=== PATIENT | male | born 1940 | race Caucasian/White ===

== ENCOUNTER → 2017-02-19 | Outpatient (CLI) | payer MEDICARE, OTHER ==
[~2017-02-19] MED LIST: ASCO10004 PO; ASPI-496 PO; CARB1TAB47 PO; CHONDROITIN PEG; CURCUMIN PO; ESZO3TAB28 PO; MULT-516 PO; PRAS50TA PO; RASA1TAB2 PO; RIVA20TA PO; UBID400C6 PO; VITAMIN E PO
== END | disposition home or self-care (01) ==
LOC: CFH 14:40
PROVIDERS: ATTEND Internal Medicine
DX: M48.54XA Collapsed vertebra, not elsewhere classified, thoracic region, initial encounter for fracture (principal); J98.4 Other disorders of lung
CPT/HCPCS: 71250

== ENCOUNTER → 2017-11-18 | Outpatient (CLI) | payer MEDICARE, OTHER | END | disposition home or self-care (01) | LOC: CFH 08:41 | PROVIDERS: ATTEND Internal Medicine Cardiovascular Disease | DX: I08.0 Rheumatic disorders of both mitral and aortic valves (principal); R06.02 Shortness of breath | CPT/HCPCS: 93306 ==

== ENCOUNTER 2018-02-24 08:56 | Emergency (ER) | payer MEDICARE, OTHER ==
[~2018-02-24] VITALS: Ht 182.9 cm; Wt 78.1 kg
[2018-02-24] MEDS ORDERED: CARBIDOPA/LEVODOPA 25 MG/100 MG TABLET PO ONE (09:33)
[2018-02-24] MEDS ORDERED: LORazepam 1MG TABLET ONE (09:59)
[2018-02-24] MEDS ORDERED: DIPHENHYDRAMINE 50 MG/ML, 1ML IM ONE (10:00)
[2018-02-24] MEDS ORDERED: LORazepam 1MG TABLET PO ONE (10:00)
[2018-02-24 10:35] LABS: BASOPHILS # (AUTO) 0.01 x10^3/uL (0-0.1); BASOPHILS % (AUTO) 0 % (0-1); EOSINOPHILS # (AUTO) 0.08 x10^3/uL (0-0.4); EOSINOPHILS % (AUTO) 1 % (1-7); LYMPHOCYTES # (AUTO) 1.22 x10^3/uL (1-3.4); LYMPHOCYTES % (AUTO) 18 % (22-44); MD NO; MEAN CORPUSCULAR HEMOGLOBIN 32.1 pg (27.5-34.5); MEAN CORPUSCULAR HGB CONC 34.3 g/dL (33.2-36.2); MEAN CORPUSCULAR VOLUME 93.8 fL (81-97); MEAN PLATELET VOLUME 8.1 fL (7.4-10.4); MONOCYTES # (AUTO) 0.51 x10^3/uL (0.2-0.8); MONOCYTES % (AUTO) 8 % (2-9); NEUTROPHILS # (AUTO) 4.81 x10^3/uL (1.8-6.8); NEUTROPHILS % (AUTO) 73 % (42-75); PLATELET COUNT 211 x10^3/uL (130-400); RED BLOOD COUNT 4.78 x10^6/uL (4.38-5.82); RED CELL DISTRIBUTION WIDTH 13.5 % (9.4-14.8)
[2018-02-24 10:45] LABS: ALANINE AMINOTRANSFERASE 8 U/L (12-78); ALBUMIN 3.9 g/dL (3.4-5.0); ANION GAP 9 mmol/L (5-15); CALCIUM 9.2 mg/dL (8.5-10.1); CHLORIDE 106 mmol/L (98-107); CREATININE 1.08 mg/dL (0.7-1.3)
[2018-02-24 10:47] LABS: ALKALINE PHOSPHATASE 70 U/L (45-117); TOTAL PROTEIN 6.8 g/dL (6.4-8.2)
[2018-02-24 11:08] VITALS: BP 147/85
== END 2018-02-24 12:14 | disposition home or self-care (01) ==
LOC: ED 11:19
DX: F41.1 Generalized anxiety disorder (principal); G20 Parkinson's disease; I48.91 Unspecified atrial fibrillation
CPT/HCPCS: 36415; 80053; 85025; 93005; 99285

== ENCOUNTER → 2018-03-03 | Outpatient (CLI) | payer MEDICARE, OTHER ==
[~2018-03-03] MED LIST changes: +REGADENOSON 0.4 MG/5 ML SYRINGE ONE
== END | disposition home or self-care (01) ==
LOC: CFH 08:19
PROVIDERS: ATTEND Internal Medicine Cardiovascular Disease
DX: R06.02 Shortness of breath (principal); R07.9 Chest pain, unspecified
CPT/HCPCS: 78452; 93017; A9502; J2785

== ENCOUNTER 2020-07-16 16:13 | Emergency (ER) | payer MEDICARE, OTHER ==
[~2020-07-16] VITALS: Ht 182.9 cm; Wt 74.0 kg
[~2020-07-16 16:13] MED LIST changes: +ASCO100018 PO; -ASCO10004 PO; -REGADENOSON 0.4 MG/5 ML SYRINGE ONE
--- NOTE | 2020-07-16 16:40 | NUR ---
ERMD AT BEDSIDE FOR EVAL.
--- NOTE | 2020-07-16 16:59 | NUR ---
XRAY AT BEDSIDE.
[2020-07-16] MEDS ORDERED: LORazepam 0.5MG TABLET PO ONE (17:00)
[2020-07-16] MEDS ORDERED: LORazepam 0.5MG TABLET ONE (17:02)
[2020-07-16] MEDS ORDERED: ENTA200T22 PO (17:12)
[2020-07-16] MEDS ORDERED: CARB1TAB22 PO (17:12)
[2020-07-16] MEDS ORDERED: ALPR0.5T93 PO (17:12)
[2020-07-16] MEDS ORDERED: ASPI325T17 PO (17:12)
[2020-07-16 17:25] LABS: BASOPHILS % (AUTO) 0 % (0-1); EOSINOPHILS % (AUTO) 0 % (1-7); LYMPHOCYTES % (AUTO) 18 % (22-44); MEAN CORPUSCULAR HEMOGLOBIN 31.6 pg (27.5-34.5); MEAN CORPUSCULAR HGB CONC 34.4 g/dL (33.2-36.2); MEAN PLATELET VOLUME 7.8 fL (7.4-10.4); MONOCYTES % (AUTO) 7 % (2-9); NEUTROPHILS % (AUTO) 75 % (42-75); PLATELET COUNT 175 x10^3/uL (130-400); RED CELL DISTRIBUTION WIDTH 13.6 % (9.4-14.8)
[2020-07-16 17:27] LABS: MD NO
[2020-07-16 17:35] LABS: ALBUMIN 3.8 g/dL (3.4-5.0); ANION GAP 6 mmol/L (5-15); CALCIUM 8.6 mg/dL (8.5-10.1); CHLORIDE 113 mmol/L (98-107)
[2020-07-16 17:40] LABS: ALKALINE PHOSPHATASE 68 U/L (45-117); CREATININE 1.01 mg/dL (0.7-1.3); TOTAL PROTEIN 6.1 g/dL (6.4-8.2); TROPONIN I < 0.015 ng/mL (0.000-0.045)
[2020-07-16 17:41] LABS: ALANINE AMINOTRANSFERASE < 6 U/L (12-78)
--- NOTE | 2020-07-16 18:19 | NUR ---
TASK RN: PT TO IMAGING VIA [facility] AT THIS TIME.
--- NOTE | 2020-07-16 19:54 | NUR ---
Buck martin in [facility] - 07/16/20 at 1955 by RADHA TRANSFER TO HOSPITAL BED.
--- NOTE | 2020-07-16 19:54 | NUR ---
TRANSFER TO HOSPITAL BED.
--- NOTE | 2020-07-16 19:55 | NUR ---
REQUESTED MEDS FROM PHARMACY.
[2020-07-16] MEDS ORDERED: OMNIPAQUE 350 MG/ML, 100ML BOTTLE ONE (20:00)
[2020-07-16] MEDS ORDERED: CARBIDOPA/LEVODOPA 25 MG/100 MG TABLET PO ONE (20:00)
[2020-07-16] MEDS ORDERED: ENTACAPONE 200 MG TABLET PO ONE (20:00)
[2020-07-16 20:02] VITALS: BP 159/97
--- NOTE | 2020-07-16 20:02 | NUR ---
PT MEDICATED PER MAR.
--- NOTE | 2020-07-16 20:15 | NUR ---
DR. DOMINGUEZ AT BEDSIDE TO DISCUSS POC.
== END 2020-07-16 20:38 | disposition home or self-care (01) ==
LOC: ED 17:49
DX: R06.00 Dyspnea, unspecified (principal); R06.02 Shortness of breath; R07.89 Other chest pain; G20 Parkinson's disease; I48.91 Unspecified atrial fibrillation; F41.9 Anxiety disorder, unspecified
CPT/HCPCS: 36415; 71045; 71275; 80053; 83880; 84484; 85025; 93005; 99285; Q9967

== ENCOUNTER 2020-07-23 13:20 | Emergency (ER) | payer MEDICARE, OTHER ==
[~2020-07-23] VITALS: Ht 182.9 cm; Wt 77.0 kg
[~2020-07-23 13:20] MED LIST changes: +ALPR0.5T93 PO; +ASPI325T17 PO; +CARB1TAB22 PO; +ENTA200T22 PO
[2020-07-23 13:27] VITALS: BP 167/82
[2020-07-23 14:06] LABS: BASOPHILS % (AUTO) 0 % (0-1); EOSINOPHILS % (AUTO) 0 % (1-7); LYMPHOCYTES % (AUTO) 8 % (22-44); MEAN CORPUSCULAR HEMOGLOBIN 31.6 pg (27.5-34.5); MEAN CORPUSCULAR HGB CONC 33.3 g/dL (33.2-36.2); MEAN PLATELET VOLUME 8.1 fL (7.4-10.4); MONOCYTES % (AUTO) 7 % (2-9); NEUTROPHILS % (AUTO) 85 % (42-75); PLATELET COUNT 205 x10^3/uL (130-400); RED BLOOD COUNT 4.95 x10^6/uL (4.38-5.82); RED CELL DISTRIBUTION WIDTH 13.5 % (9.4-14.8)
[2020-07-23 14:13] LABS: ALBUMIN 4.5 g/dL (3.4-5.0); ANION GAP 8 mmol/L (5-15); CALCIUM 9.5 mg/dL (8.5-10.1); CHLORIDE 111 mmol/L (98-107); CREATININE 1.08 mg/dL (0.7-1.3)
[2020-07-23 14:17] LABS: TROPONIN I < 0.015 ng/mL (0.000-0.045)
--- NOTE | 2020-07-23 14:25 | NUR ---
BREAK RN: PT VISITING WITH FAMILY AT BEDSIDE. VS STABLE. NO ACUTE DISTRESS NOTED. CALL LIGHT IN PLACE. WILL CONTINUE TO MONITOR.
[2020-07-23 14:32] LABS: MD SCAN
--- NOTE | 2020-07-23 15:01 | NUR ---
BREAK RN: REPORT GIVEN TO JORGE CONNELL
[2020-07-23] MEDS ORDERED: FUROSEMIDE 20 MG TABLET PO ONE (15:30)
[2020-07-23] MEDS ORDERED: FUROSEMIDE 20 MG TABLET ONE (15:36)
== END 2020-07-23 15:43 | disposition home or self-care (01) ==
LOC: ED 15:22
DX: I50.9 Heart failure, unspecified (principal); R06.00 Dyspnea, unspecified; R00.2 Palpitations; R07.89 Other chest pain; R06.02 Shortness of breath; I48.91 Unspecified atrial fibrillation
CPT/HCPCS: 36415; 71045; 80048; 82040; 83880; 84484; 85025; 93005; 99285

== ENCOUNTER 2020-07-25 18:53 | Observation (INO) | payer MEDICARE, OTHER ==
[~2020-07-25] VITALS: Ht 182.9 cm; Wt 70.5 kg
--- NOTE | 2020-07-25 19:03 | NUR ---
pt bibm, noted to have significant tremor to rue, hyperventilating, complaining of shortness of breath. pt placed on site monitor, coached on pursed lip breathing, and encouraged to calm himself. pt denies pain, reports being seen in ed last night for same. ekg done on arrival.
[2020-07-25] MEDS ORDERED: LORazepam 2 MG/ML, 1ML ONE (19:46)
[2020-07-25] MEDS ORDERED: ASPIRIN 81 MG TABLET CHEW ONE (19:51)
[2020-07-25 20:00] LABS: BASOPHILS % (AUTO) 0 % (0-1); EOSINOPHILS % (AUTO) 0 % (1-7); LYMPHOCYTES % (AUTO) 5 % (22-44); MEAN CORPUSCULAR HEMOGLOBIN 31.8 pg (27.5-34.5); MEAN CORPUSCULAR HGB CONC 34.3 g/dL (33.2-36.2); MONOCYTES % (AUTO) 7 % (2-9); NEUTROPHILS % (AUTO) 87 % (42-75); PLATELET COUNT 200 x10^3/uL (130-400); RED BLOOD COUNT 4.88 x10^6/uL (4.38-5.82); RED CELL DISTRIBUTION WIDTH 13.5 % (9.4-14.8)
[2020-07-25] MEDS ORDERED: ASPIRIN 81 MG TABLET CHEW PO ONE (20:00)
[2020-07-25] MEDS ORDERED: LORazepam 2 MG/ML, 1ML IVPush ONE (20:00)
[2020-07-25 20:01] LABS: MD NO
[2020-07-25 20:12] LABS: ALANINE AMINOTRANSFERASE 12 U/L (12-78); ALBUMIN 4.2 g/dL (3.4-5.0); ANION GAP 11 mmol/L (5-15); CALCIUM 9.1 mg/dL (8.5-10.1); CHLORIDE 106 mmol/L (98-107); CREATININE 1.34 mg/dL (0.7-1.3)
[2020-07-25 20:17] LABS: ALKALINE PHOSPHATASE 83 U/L (45-117); BILIRUBIN,TOTAL 1.5 mg/dL (0.2-1.0); TROPONIN I < 0.015 ng/mL (0.000-0.045)
--- NOTE | 2020-07-25 20:34 | NUR ---
pt in bed with no signs or symptoms of acute distress noted, respirations even and unlabored. tremor noted to be more calm, pt is no longer hyperventilating, pt reports feeling much better. 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
[2020-07-25 22:37] VITALS: BP 120/75
[2020-07-25 23:21] LABS: MICROSCOPIC NOT IND
[2020-07-25] MEDS ORDERED: POLYETHYLENE GLYCOL 17 GM PACKET PO PRN (23:30)
[2020-07-25] MEDS ORDERED: BISACODYL 10 MG SUPP PR PRN (23:30)
[2020-07-25] MEDS ORDERED: DOCUSATE 100 MG CAPSULE PO PRN (23:30)
[2020-07-25] MEDS ORDERED: ONDANSETRON 2MG/ML, 2ML IVPush PRN (23:30)
[2020-07-25] MEDS ORDERED: ENALAPRILAT 1.25 MG/ML, 2ML IVPush PRN (23:30)
[2020-07-25] MEDS ORDERED: LORazepam 2 MG/ML, 1ML IVPush PRN (23:30)
[2020-07-25] MEDS: CARBIDOPA/LEVODOPA 25 MG/100 MG TABLET PO SCH (23:52)
[2020-07-25] MEDS: LACTATED RINGERS 1,000 ML IV SCH (23:52)
[2020-07-25] MEDS: HEPARIN 5,000 UNITS/ML, 1ML SQ SCH (23:52)
[2020-07-26 01:35] LABS: TROPONIN I < 0.015 ng/mL (0.000-0.045)
[2020-07-26 02:07] VITALS: BP 124/68
[2020-07-26 02:11] LABS: BASOPHILS % (AUTO) 0 % (0-1); EOSINOPHILS % (AUTO) 0 % (1-7); LYMPHOCYTES % (AUTO) 8 % (22-44); MEAN CORPUSCULAR HEMOGLOBIN 31.7 pg (27.5-34.5); MEAN CORPUSCULAR HGB CONC 34.1 g/dL (33.2-36.2); MEAN PLATELET VOLUME 8.1 fL (7.4-10.4); MONOCYTES % (AUTO) 7 % (2-9); NEUTROPHILS % (AUTO) 84 % (42-75); PLATELET COUNT 189 x10^3/uL (130-400); RED BLOOD COUNT 4.53 x10^6/uL (4.38-5.82); RED CELL DISTRIBUTION WIDTH 13.6 % (9.4-14.8)
[2020-07-26 02:15] LABS: MD NO
[2020-07-26 02:19] LABS: ALANINE AMINOTRANSFERASE 8 U/L (12-78); ALBUMIN 3.6 g/dL (3.4-5.0); ANION GAP 9 mmol/L (5-15); CALCIUM 8.4 mg/dL (8.5-10.1); CHLORIDE 108 mmol/L (98-107); CREATININE 1.13 mg/dL (0.7-1.3)
[2020-07-26 02:22] LABS: ALKALINE PHOSPHATASE 71 U/L (45-117); BILIRUBIN,TOTAL 1.4 mg/dL (0.2-1.0); TOTAL PROTEIN 6.3 g/dL (6.4-8.2)
[2020-07-26] MEDS: CARBIDOPA/LEVODOPA 25 MG/100 MG TABLET PO SCH ×4 (03:02→11:22)
[2020-07-26] MEDS: ENTACAPONE 200 MG TABLET PO SCH ×2 (05:47→09:56)
[2020-07-26] MEDS ORDERED: ASPIRIN 81 MG TABLET EC PO SCH (06:00)
[2020-07-26 07:58] VITALS: BP 115/70
[2020-07-26] MEDS: HEPARIN 5,000 UNITS/ML, 1ML SQ SCH (08:12)
[2020-07-26] MEDS ORDERED: MULTIVITAMIN 1 TABLET PO SCH (09:00)
[2020-07-26] MEDS ORDERED: ASCORBIC ACID 500 MG TABLET PO SCH (09:00)
[2020-07-26] MEDS: LACTATED RINGERS 1,000 ML IV SCH (09:55)
[2020-07-26 13:10] VITALS: BP 111/70
== END 2020-07-26 13:30 | disposition home or self-care (01) ==
LOC: ED 19:23 → INTOOBSV 21:29 → EDIP 21:29 → 5SO 22:20 → DCLOUNGE 07-26 13:24
PROVIDERS: ADMIT Family Medicine; ATTEND Family Medicine
DX: F41.0 Panic disorder [episodic paroxysmal anxiety] (principal); N17.9 Acute kidney failure, unspecified; I48.91 Unspecified atrial fibrillation; R06.02 Shortness of breath; R94.31 Abnormal electrocardiogram [ECG] [EKG]; I50.9 Heart failure, unspecified; R73.9 Hyperglycemia, unspecified; R07.89 Other chest pain; R06.00 Dyspnea, unspecified; E80.7 Disorder of bilirubin metabolism, unspecified; G20 Parkinson's disease; Z79.899 Other long term (current) drug therapy
CPT/HCPCS: 36415; 71045; 80053; 81003; 83036; 84443; 84484; 85025; 93005; 96361; 96372; 96374; 99285; G0378; J1644; J2060; J7120

== ENCOUNTER → 2020-11-03 | Outpatient (CLI) | payer MEDICARE, OTHER | END | disposition home or self-care (01) | LOC: CVU 08:06 | PROVIDERS: ATTEND Internal Medicine Cardiovascular Disease | DX: I34.0 Nonrheumatic mitral (valve) insufficiency (principal); R06.02 Shortness of breath; I48.91 Unspecified atrial fibrillation; Z95.0 Presence of cardiac pacemaker | CPT/HCPCS: 93306; 93356 ==

== ENCOUNTER → 2020-11-11 | Outpatient (CLI) | payer MEDICARE, OTHER ==
[~2020-11-11] MED LIST changes: +REGADENOSON 0.4 MG/5 ML SYRINGE ONE
== END | disposition home or self-care (01) ==
LOC: CFH 07:08
PROVIDERS: ATTEND Internal Medicine Cardiovascular Disease
DX: I34.0 Nonrheumatic mitral (valve) insufficiency (principal); R06.02 Shortness of breath
CPT/HCPCS: 78452; 93017; A9502; J2785

== ENCOUNTER 2021-01-08 18:31 | Emergency (ER) | payer MEDICARE, OTHER ==
[~2021-01-08] VITALS: Ht 182.9 cm; Wt 66.0 kg
[~2021-01-08 18:31] MED LIST changes: -REGADENOSON 0.4 MG/5 ML SYRINGE ONE
--- NOTE | 2021-01-08 19:12 | NUR ---
PT TO ROOM FROM LOBBY
--- NOTE | 2021-01-08 20:01 | NUR ---
PT UPRIGHT ON GURNEY AWAKE, CALM & COMFORTABLE AT REST, RESPONDS APPROP TO STAFF, NAD, COMFORT MEASURES PROVIDED, CALL LIGHT WITHIN REACH.
[2021-01-08 20:07] LABS: BASOPHILS % (AUTO) 0 % (0-1); EOSINOPHILS % (AUTO) 1 % (1-7); LYMPHOCYTES % (AUTO) 13 % (22-44); MEAN CORPUSCULAR HEMOGLOBIN 31.7 pg (27.5-34.5); MEAN CORPUSCULAR HGB CONC 33.8 g/dL (33.2-36.2); MEAN PLATELET VOLUME 7.6 fL (7.4-10.4); MONOCYTES % (AUTO) 6 % (2-9); NEUTROPHILS % (AUTO) 80 % (42-75); PLATELET COUNT 203 x10^3/uL (130-400); RED BLOOD COUNT 4.08 x10^6/uL (4.38-5.82); RED CELL DISTRIBUTION WIDTH 14.1 % (9.4-14.8)
[2021-01-08 20:15] LABS: ALBUMIN 3.5 g/dL (3.4-5.0); ANION GAP 2 mmol/L (5-15); CALCIUM 8.2 mg/dL (8.5-10.1); CHLORIDE 107 mmol/L (98-107); CREATININE 0.91 mg/dL (0.7-1.3)
[2021-01-08 20:19] LABS: TROPONIN I < 0.015 ng/mL (0.000-0.045)
[2021-01-08 20:46] VITALS: BP 111/72
--- NOTE | 2021-01-08 20:57 | NUR ---
Patient given discharge instructions and Rx, they have confirmed that they understand the instructions. Patient ambulatory with steady gait. NAD, all questions answered appropriately, denies additional needs at this time. No personal belongings left in room after discharge.
== END 2021-01-08 21:24 | disposition home or self-care (01) ==
LOC: ED 19:30
DX: F41.1 Generalized anxiety disorder (principal); R94.31 Abnormal electrocardiogram [ECG] [EKG]; I11.0 Hypertensive heart disease with heart failure; I50.9 Heart failure, unspecified; I48.91 Unspecified atrial fibrillation; G20 Parkinson's disease
CPT/HCPCS: 36415; 71045; 80048; 82040; 83880; 84484; 85025; 93005; 99285

== ENCOUNTER 2021-03-08 10:54 | Day surgery (SDC) | payer MEDICARE, OTHER ==
[~2021-03-08] VITALS: Ht 182.9 cm; Wt 70.0 kg
[2021-03-08] MEDS ORDERED: SODIUM CHLORIDE 0.9% 1,000 ML IV ONE (11:00)
[2021-03-08] MEDS ORDERED: tumeric PO (11:23)
[2021-03-08] MEDS ORDERED: LORA-445 PO (11:23)
[2021-03-08] MEDS ORDERED: LACT1CAP5 PO (11:23)
[2021-03-08] MEDS ORDERED: SERT50TA PO (11:23)
[2021-03-08] MEDS ORDERED: ASPI81TA45 PO (11:23)
== END 2021-03-08 14:08 | disposition home or self-care (01) ==
LOC: CACL 10:54
PROVIDERS: ATTEND Internal Medicine Cardiovascular Disease
DX: I35.1 Nonrheumatic aortic (valve) insufficiency (principal); Z20.822 Contact with and (suspected) exposure to COVID-19
CPT/HCPCS: 87635; 93312